=== PATIENT | male | born 1975 | race Caucasian/White ===

== ENCOUNTER 2023-12-05 08:12 | Day surgery (SDC) | payer OTHER, SELFPAY ==
[2023-12-05] VITALS (15 sets, daily range): BP systolic 123–165; BP diastolic 78–119; PULSE 54–77; RESP 10–16; TEMP 35.7–36.3; O2SAT 90–100; BMI 26.2
[2023-12-05] MEDS: LACTATED RINGERS 1000 ML 1,000 ML 100 ML IV ×2 (09:05→10:36)
[2023-12-05] MEDS: SODIUM CHLORIDE 0.9 % (FLUSH) 10 ML SYRINGE IVF (09:05)
--- NOTE | 2023-12-05 10:22 | W.PM.H&PU ---
History & Physical Update History & Physical Update H&P Reviewed and patient assessed: No changes noted
[2023-12-05] MEDS: CEFAZOLIN 2 GM INJ IVP (10:29)
[2023-12-05] MEDS: BUPIVACAINE 0.25% 30 ML INJECTION (12:50)
--- NOTE | 2023-12-05 13:04 | W.ANESCHARGE ---
Anesthesia Charges Start Date/Time Anesthesia Start Date: 12/05/23 Anesthesia Start Time: 10:14 Stop Date/Time Anesthesia Stop Date: 12/05/23 Anesthesia Stop Time: 13:14
[2023-12-05] MEDS: fentaNYL 100 MCG/2 ML inj 50 MCG IVP (13:30)
[2023-12-05] MEDS: MEPERIDINE 25 MG/ML INJ 12.5 MG IVP (13:40)
--- NOTE | 2023-12-05 13:48 | PM.GSPRC ---
Operative Note Date of procedure: 12/05/23 Pre-op diagnosis: Right inguinal hernia Post-op diagnosis: Same, Large indirect Type of Procedure: Laparoscopic right inguinal hernia repair Indications: Patient is a 48-year-old male who presented to clinic with a symptomatic right inguinal hernia. Different treatment options were reviewed with the patient, please see consultation note for full discussion. Risks and benefits of operative intervention were discussed at length with the patient. Risks included but was not limited to: Bleeding, infection, risk of damage to surrounding structures, possible need for additional procedures, possible need to convert to an open operation and postoperative complications such as pneumonia, pulmonary emboli or AR. All questions and concerns were addressed with the patient agreeing to proceed. Procedure Description: After discussing the risks and benefits of the procedure, the patient signed informed consent.? The operative site was marked and the patient was brought to the operating room and placed on the operating table in supine position.? Care was taken to pad the patient's pressure points.?? The patient was then intubated by anesthesia.?? The operative site was then prepped and draped in the usual sterile fashion.? A time-out was then performed. A curvilinear incision was made below the umbilicus. Dissection was carried down to subcutaneous tissue until the anterior rectus fascia was encountered. This was incised off the midline. The rectus muscles were then retracted exposing the posterior fascia. A space maker port with a dissecting balloon was then introduced. The preperitoneal space was inflated under direct vision. The balloon was then removed and the preperitoneal space insufflated. A 10 mm 30 degree scope was then advanced and the area was surveyed for bleeding. Dissection began on the right side. Aristeo's ligament and the pubic bone was exposed medially. Following this dissection was carried out laterally. A large indirect defect was noted. The sac was difficult to dissected free from the cord structures. This did require blunt and sharp dissection. A small area of bleeding fat was controlled with a 5 mm clip. Once the sac was completely reduced,a piece of large Bard 3D mesh for the appropriate side was placed into the abdomen. This was positioned in the preperitoneal space. A Tacker was used to attach the mesh medially at Aristeo's ligament and laterally, taking care not to injure the epigastric. Once this was completed the sac was placed on top of the mesh and the preperitoneal space desufflated under direct vision. The ports were removed. The fascia from the infraumbilical port was closed with 0 Vicryl. The skin incisions were closed with absorbable subcuticular suture. Sterile dressings were then applied. The scrotum was examined to ensure that both testicles were down. Instrument sponge and needle counts were correct at the end of the case. Findings: Large indirect right inguinal hernia. Anesthesia: GETA Surgeon: Paty Francois MD Estimated blood loss (mL): 15 Condition: stable Disposition: PACU
--- NOTE | 2023-12-05 13:53 | W.ANESCHARGE ---
Anesthesia Charges Start Date/Time Anesthesia Start Date: 12/05/23 Anesthesia Start Time: 10:14 Stop Date/Time Anesthesia Stop Date: 12/05/23 Anesthesia Stop Time: 13:14
[2023-12-05] MEDS: ACETAMINOPHEN 325 MG TABLET 650 MG PO (14:15)
[2023-12-05] MEDS: OXYCODONE 5 MG TABLET PO (14:15)
--- NOTE | 2023-12-23 16:23 | PC.NURSE ---
Patients called with concerns of infection, reported with patient is having redness around midline incision site as well as the area feeling hard and pus present. Dr. Pina called and updated, ordered Bactrim 800-160 BID x7days. Prescription called [facility]. Patient called with update on prescription, told to take as prescribed and the importance of taking entire course. Informed that someone from clinic will be calling him tomorrow for follow up. Told patient to call back if he has any further questions about medications or concerns about incisions.
--- NOTE | 2023-12-25 19:50 | PC.NURSE ---
Agusto's Dee calls Med/Surg this evening and is concerned about Agusto's incision from hernia surgery on 12/04. Per , patient was started on Bactrim on 12/22 for redness and firm area around stab incision with some pus noted. Patient had spoken to Dr. Francois yesterday 12/23 and was told if these symptoms worsened he should be seen sooner than appointment next 12/31. Dee states incision appears to have a boil that is approximately the size of a quarter with a silver dollar area of redness around it. Patient reports pain with pants rubbing on area, but states it feels less warm and less red than yesterday. States he has been putting gauze on area at work to prevent rubbing and has noted bloody/yellow drainage on dressing. Denies fever, chills, no issues eating/drinking. States he is feeling well other than pain that is noted when area is irritated. Patient has been taking antibiotic as directed, last dose was this afternoon. Call placed to Dr. Venegas, updated with above information. Dr. Venegas's nurse will call patient/ in AM tomorrow to set up appointment for him to be seen tomorrow. Also explained to that ER is open 18/02 if patient condition worsened or they had further concerns.
== END 2023-12-05 15:19 | disposition home or self-care (01) ==
PROVIDERS: Visit Provider Surgery
PROC: (CPT 49650; principal; 2023-12-05 10:00)
DX: K40.90 Unilateral inguinal hernia, without obstruction or gangrene, not specified as recurrent (principal)
CPT/HCPCS: 49650; 00830; 00840; 00860; A9270; C1781; J0330; J0665; J0690; J1100; J2175; J2250; J2405; J2704; J3010; J3490; J7120

== ENCOUNTER 2023-12-26 11:09 | Outpatient (CLI) | payer OTHER, SELFPAY | END 2023-12-26 11:10 | disposition home or self-care (01) | LOC: NFLDREF 11:10 | PROVIDERS: Visit Provider Surgery | DX: T81.49XA Infection following a procedure, other surgical site, initial encounter (principal) | CPT/HCPCS: 87070; 87186 ==